=== PATIENT | female | born 1975 | race American Indian/Alaskan Native ===

== ENCOUNTER 2017-08-29 15:21 | Outpatient (CLI) | payer BC ==
--- NOTE | 2017-09-01 11:50 | Mammography Report ---
BILATERAL DIGITAL SCREENING MAMMOGRAM with CAD: 08/29/17 15:21:00 CLINICAL: Routine screening. COMPARISON:None. She hasn't had a mammogram in over five years. FINDINGS: The breasts are mostly fatty few bilateral residual fibroglandular densities. A left inner asymmetry on the CC view requires additional imaging. No architectural distortion or suspicious calcifications.The right breast is negative. IMPRESSION: Left asymmetry requiring further workup. BI-RADS CATEGORY: 0 -- Additional Imaging Evaluation Required RECOMMENDATION: Recall for left lateralmedial , rolled and spot compression CC views and left breast ultrasound if needed. ACR BI-RADS MAMMOGRAPHIC CODES: 0 = Needs additional imaging evaluation; 1 = Negative; 2 = Benign; 3 = Probably benign; 4 = Suspicious; 5 = Malignant; 6 = Known biopsy-proven malignancy COMMENT: 1. Dense breast tissue, i.e., adenosis, fibrocystic changes, etc., may obscure an underlying neoplasm. 2. Approximately 10% of cancers are not detected with mammography. 3. A negative mammography report should not delay biopsy if a clinically suspicious mass is present. COMMENT: Patient follow-up letters are generated via our [employer] application.
== END 2017-08-29 15:22 | disposition home or self-care (01) ==
LOC: SPVWC 15:21
PROVIDERS: ATTEND Internal Medicine
DX: Z12.31 Encounter for screening mammogram for malignant neoplasm of breast (principal)
CPT/HCPCS: 77067

== ENCOUNTER 2017-09-18 09:00 | Outpatient (CLI) | payer BC ==
--- NOTE | 2017-09-18 11:26 | Mammography Report ---
LEFT DIGITAL DIAGNOSTIC MAMMOGRAM : 09/18/17 09:00:00 CLINICAL: Recalled for asymmetry. COMPARISON:08/29/17 screening FINDINGS: Lateralmedial, rolled CC and spot magnification CC views were performed. Partial effacement of asymmetry on the CC view and persistent asymmetry of the rolled views. Ultrasound of the left breast (including all four quadrants and the retroareolar area) was performed and demonstrated a single benign cyst at 3 o'clock 6 cm from the nipple measuring 5 x 2 x 4 mm. No solid mass or shadowing. No ultrasound findings correlate with the mammographic density. Ultrasound of the left axilla demonstrated a benign lymph node with central fat measuring 1.3 x 0.6 x 1.0 cm. No suspicious lymph nodes. IMPRESSION: Benign summation density and a single benign 5 mm cyst of the left breast.No suspicious finding. BI-RADS CATEGORY: 2 - - Benign RECOMMENDATION: Routine mammographic screening in one year. ACR BI-RADS MAMMOGRAPHIC CODES: 0 = Needs additional imaging evaluation; 1 = Negative; 2 = Benign; 3 = Probably benign; 4 = Suspicious; 5 = Malignant; 6 = Known biopsy-proven malignancy COMMENT: 1. Dense breast tissue, i.e., adenosis, fibrocystic changes, etc., may obscure an underlying neoplasm. 2. Approximately 10% of cancers are not detected with mammography. 3. A negative mammography report should not delay biopsy if a clinically suspicious mass is present. COMMENT: Patient follow-up letters are generated via our [employer] application.
== END 2017-09-18 09:01 | disposition home or self-care (01) ==
LOC: SPVWC 09:00
PROVIDERS: ATTEND Internal Medicine
DX: N60.02 Solitary cyst of left breast (principal); R92.2 Inconclusive mammogram

== ENCOUNTER 2020-01-04 10:03 | Outpatient (CLI) | payer BC, MEDICAID ==
--- NOTE | 2020-01-04 14:14 | Mammography Report ---
DIGITAL SCREENING MAMMOGRAM WITH CAD, 01/04/2020 INDICATION: Routine screening mammography. TECHNIQUE: Digital bilateral 2D mammography was obtained in the craniocaudal and mediolateral obliq ue projections. This examination was interpreted with the benefit of Computer-Aided Detection analysi s. COMPARISON: 09/18/2017, 08/29/2017 FINDINGS: Breast Density: There are scattered areas of fibroglandular density. There is no evidence of dominant mass, suspicious calcifications or architectural distortion in eithe r breast. IMPRESSION: Follow up recommendation: Routine yearly BI-RADS Category 1: Negative. A "normal" or negative report should not discourage follow up or biopsy of a clinically significant f inding. A written summary of these findings will be mailed to the patient. The patient will be entered into a mammography reporting system which will generate a reminder letter for the patient's next appointmen t at the appropriate interval. The [employer] recommends yearly mammograms starting at age 40 and continuing as l topher as a woman is in good health. Breast MRI is recommended for women with an approximate 20-25% or greater lifetime risk of breast cancer, including women with a strong family history of breast or ova fab cancer or who have been treated for Hodgkin's disease. Signer Name: Dao Lyons MD Signed: 01/04/2020 2:09 PM Workstation Name: [id number]
== END 2020-01-04 10:04 | disposition home or self-care (01) ==
LOC: SPVWC 10:03
PROVIDERS: ATTEND Internal Medicine
DX: Z12.31 Encounter for screening mammogram for malignant neoplasm of breast (principal); N64.89 Other specified disorders of breast
CPT/HCPCS: 77067

== ENCOUNTER 2020-03-29 13:36 | Outpatient (CLI) | payer MEDICAID ==
--- NOTE | 2020-03-30 09:19 | Magnetic Resonance Report ---
MR pelvis wo con INDICATION / CLINICAL INFORMATION: MAIN. TECHNIQUE: Multiplanar, multisequence MR images were obtained. COMPARISON: None available. FINDINGS: No prior exams are available for comparison. Moderate artifact is demonstrated throughout the uterus, most likely from existing intrauterine devic e. There is a 1.4 cm well-defined, cystic appearing lesion in the periphery of the lower uterine segm ent posteriorly and on the left. No additional abnormalities. IMPRESSION: 1. 1.4 cm cystic-appearing lesion probably submucosal in location, in the lower uterine segment poste riorly and on the left. Exact etiology is not known. I would suggest further evaluation with pelvic u ltrasound. Signer Name: Pepito Rod MD Signed: 03/30/2020 9:14 AM Workstation Name: [id number]
== END 2020-03-29 13:37 | disposition home or self-care (01) ==
LOC: MRI 13:36
PROVIDERS: ATTEND Radiology Diagnostic Radiology
DX: D25.0 Submucous leiomyoma of uterus (principal)
CPT/HCPCS: 72195

== ENCOUNTER 2020-05-28 11:00 | Outpatient (CLI) | payer MEDICAID | END 2020-05-29 11:00 | disposition home or self-care (01) | LOC: SLR 11:00 | PROVIDERS: ATTEND Internal Medicine Critical Care Medicine | DX: G47.30 Sleep apnea, unspecified (principal) | CPT/HCPCS: G0399 ==

== ENCOUNTER 2021-03-14 13:52 | Outpatient (CLI) | payer OTHER ==
--- NOTE | 2021-03-14 15:06 | Mammography Report ---
DIGITAL SCREENING MAMMOGRAM WITH CAD, 03/14/2021 CLINICAL INFORMATION / INDICATION: Routine screening mammography. SCREENING MAMMO TECHNIQUE: Digital bilateral 2D mammography was obtained in the craniocaudal and mediolateral obliqu e projections. This examination was interpreted with the benefit of Computer-Aided Detection analysis . COMPARISON: 01/04/2020, 08/29/2017 FINDINGS: Breast Density: There are scattered areas of fibroglandular density. No dominant mass, suspicious calcifications, or architectural distortion in either breast. IMPRESSION: No mammographic evidence of malignancy. Follow up recommendation: Routine yearly BI-RADS Category 1: Negative. A "normal" or negative report should not discourage follow up or biopsy of a clinically significant f inding. A written summary of these findings will be mailed to the patient. The patient will be entered into a mammography reporting system which will generate a reminder letter for the patient's next appointmen t at the appropriate interval. The [employer] recommends yearly mammograms starting at age 40 and continuing as l topher as a woman is in good health. Breast MRI is recommended for women with an approximate 20-25% or greater lifetime risk of breast cancer, including women with a strong family history of breast or ova fab cancer or who have been treated for Hodgkin's disease. Signer Name: Osvaldo Sebastian MD Signed: 03/14/2021 3:01 PM Workstation Name: [id number]
== END 2021-03-14 13:53 | disposition home or self-care (01) ==
LOC: SPVWC 13:52
PROVIDERS: ATTEND Obstetrics & Gynecology
DX: Z12.31 Encounter for screening mammogram for malignant neoplasm of breast (principal)
CPT/HCPCS: 77067